=== PATIENT | female | born 1995 | race Caucasian/White ===

== ENCOUNTER 2020-12-31 09:00 | Outpatient (REF) | payer BC, SELFPAY ==
[2020-12-31 11:22] LABS: MANUAL DIFF FLAG NO
[2020-12-31 11:36] LABS: Basophils Percent Auto 0.6 % (0-2); Eosinophils Absolute Auto 0.2 X10*3/uL (0.0-0.4); Eosinophils Percent Auto 3.1 % (0-4); Hemoglobin 13.9 g/dl (12.0-16.0); Imm Gran Abs Auto 0.02 X10*3/uL (0.00-0.03); Imm Gran Pct Auto 0.3 % (0.0-0.4); Lymphocytes Absolute Auto 1.8 X10*3/uL (1.2-4.9); Mean Corpuscular HGB Conc 32.3 g/dl (31.0-35.0); Mean Corpuscular Hemoglobin 28.5 pg (27.0-33.0); Mean Corpuscular Volume 88.3 fL (80-98); Mean Platelet Volume 10.1 fL (9.4-12.3); Monocytes Absolute Auto 0.7 X10*3/uL (0.1-1.2); Monocytes Percent Auto 9.2 % (2-11); Neutrophils Absolute Auto 4.4 X10*3/uL (2.0-8.3); Neutrophils Percent Auto 61.8 % (45-73); Platelet Count 377 X10*3/uL (160-400); Red Blood Count 4.87 X10*6/uL (4.20-5.50); Red Cell Distribution Width 12.1 % (11.0-16.0); White Blood Count 7.1 X10*3/uL (4.8-10.8)
[2020-12-31 11:56] LABS: Alanine Aminotransferase 20 U/L (0-31); Aspartate Amino Transferase 18 U/L (5-31); C Reactive Protein 0.87 mg/dL (< or = 0.50); Cholesterol 173 mg/dL; HDL Cholesterol 51 mg/dL; LDL Cholesterol Calculated 110 mg/dl; Triglycerides 61 mg/dL
[2020-12-31 11:59] LABS: TSH reflex Free T4 1.58 uIU/mL (0.32-4.0)
[2020-12-31 12:00] LABS: Rheumatoid Factor < 15.0 IU/mL (<15.0)
[2020-12-31 12:29] LABS: Erythrocyte Sedimentation Rate 7 MM/HR (0-20)
[2021-01-03 05:56] LABS: HPV mRNA E6/E7 rflx Not Detected (Not Detected)
== END 2020-12-31 09:01 | disposition home or self-care (01) ==
LOC: HO.HMGCLDS 09:00
PROVIDERS: PCP Internal Medicine; Visit Provider Internal Medicine
DX: Z00.00 Encounter for general adult medical examination without abnormal findings (principal); M25.50 Pain in unspecified joint; Z78.9 Other specified health status
CPT/HCPCS: 36415; 80061; 84443; 84450; 84460; 85025; 85652; 86140; 86431; 87624; 88142

== ENCOUNTER 2025-01-31 08:48 | Outpatient (AMB) | payer BC, SELFPAY ==
[2025-01-31 08:49] VITALS: BP 148/96; PULSE 118; TEMP 36.9; O2SAT 97; BMI 34.0
--- NOTE | 2025-01-31 08:49 | AM.OFFWIN_ITS ---
Intake Vital Signs 01/31/25 08:49 Height 5 ft 11 in Weight 243 lb 8 oz BMI 34.0 BP 148/96 H Blood Pressure Location Lt brachial Position Sitting Pulse 118 H Pulse Source Pulse Oximeter Temp 98.4 F Temp Source Oral Pulse Oximetry (%) 97 Oxygen Delivery Method Room Air Intake Visit Reasons: PE Bathroom issues Intake Note: Pt presents to the office today for c/o burning with urination,frequency, and blood in her urine. Patient Tobacco Use Status: Never used Tobacco Allergies cinnamon Adverse Reaction (Verified 01/31/25 08:49) breathing issues peanut Adverse Reaction (Verified 01/31/25 08:49) hives ropinirole [From Requip] Adverse Reaction (Verified 01/31/25 08:49) hives & vomiting HPI HPI Comments History of Present Illness0 Details 29 y/o Female patient who presents to [facility] walk in clinic with c/o burning with urination, frequency, and blood in her urine since yesterday. Denies Vaginal symptoms. Denies fevers, chills, nausea or vomiting. [facility] Medical History (Updated 01/31/25 @ 09:21 by Leah Juarez NP) Dysuria Obesity (BMI 30.0-34.9) Arthralgia of multiple joints Uses control History of varicella Surgical History Hx of wisdom tooth extraction Family History Brother CVA (cerebral vascular accident), Onset Age: 4 Maternal Grandmother Bladder cancer Diabetes mellitus, Onset Age: 81 Social History Housing: Apartment Alcohol intake: current Patient Tobacco Use Status: Never used Tobacco e-Cigarette/Vaping Use: Never Used service: No Current occupational status: employed Cognitive needs: No Hearing needs: No Vision needs: Yes Review of Systems Const All systems reviewed & are unremarkable except as noted in HPI and below Physical Exam Vital Signs: Last Vital Signs Temp 98.4 F 01/31/25 08:49 Pulse 118 H 01/31/25 08:49 BP 148/96 H 01/31/25 08:49 Pulse Ox 97 01/31/25 08:49 Oxygen Delivery Method Room Air 01/31/25 08:49 BMI result Body Mass Index 34.0 Const General: no acute distress Nutritional Appearance: obese Orientation/consciousness: patient oriented x3 General: Yes no CVA tenderness Back/Spine/Pelvis Back: no CVA tenderness Neuro General: patient oriented x3, gait normal and moves all extremities Psych Speech and movement: Normal speech and movement present Results AMB Urinalysis, Automated UA Leukoctes 70 Kathy/uL Last Edit by Elena Degroot CMA on 01/31/25 09:01 UA Nitrite Negative Last Edit by Elena Degroot CMA on 01/31/25 09:01 UA Urobilinogen 0.2 mg/dL Last Edit by Elena Degroot CMA on 01/31/25 09:01 UA Protein 15 mg/dL Last Edit by Elena Degroot CMA on 01/31/25 09:01 UA pH 6.5 Last Edit by Elena Degroot CMA on 01/31/25 09:01 UA Blood 200 Bright/uL Last Edit by Elena Degroot CMA on 01/31/25 09:01 UA Specific [place] 1.015 Last Edit by Elena Degroot CMA on 01/31/25 09:01 UA Ketone Negative Last Edit by Elena Degroot CMA on 01/31/25 09:01 UA Bilirubin 0 mg/dL Last Edit by Elena Degroot CMA on 01/31/25 09:01 UA Glucose 0 mg/dL Last Edit by Elena Degroot CMA on 01/31/25 09:01 Results Reviewed Results Reviewed: Laboratory Last Values Urine pH (Auto) 6.5 01/31/25 08:56 Specific [place] (Auto) 1.015 01/31/25 08:56 Urine Protein (Auto) 15 mg/dL 01/31/25 08:56 Glucose (UA)(Auto) 0 mg/dL 01/31/25 08:56 Urine Ketones (Auto) Negative 01/31/25 08:56 Urine Blood (Auto) 200 Bright/uL 01/31/25 08:56 Urine Nitrite (Auto) Negative 01/31/25 08:56 Urine Bilirubin (Auto) 0 mg/dL 01/31/25 08:56 Urine Urobilinogen (Auto) 0.2 mg/dL 01/31/25 08:56 Leukocyte Esterase (Auto) 70 Kathy/uL 06/05/25 08:56 Assessment & Plan Assessment & Plan (1) Dysuria: Code(s): R30.0 - Dysuria Plan: Urinalysis Positive for Leuko and Blood. Possibly passed Kidney stone(s) Advised to take NSAIDs for pain relief. Sent Urine for culture. Advised to increase fluids to flush kidneys Orders: Orders AMB Urinalysis Automated Today Z13.9 - Encounter for screening, unspecified UA CC w/rflx Micro + Cult Today R30.0 - Dysuria Medications: New cefuroxime axetil 500 mg PO BID 7 days 14 tabs 0RF R30.0 - Dysuria Coding Level of Care Code Est Pt Level 4 (46193) Diagnoses Dysuria R30.0 Time Spent (min) 20
== END 2025-01-31 09:19 | disposition home or self-care (01) ==
PROVIDERS: PCP Internal Medicine; Visit Provider Nurse Practitioner Family
DX: Z13.9 Encounter for screening, unspecified (principal); R30.0 Dysuria

== ENCOUNTER 2025-01-31 08:48 | Outpatient (REF) | payer BC, SELFPAY ==
[2025-01-31 10:14] LABS: Appearance Urine Clear; Color Urine Yellow; Glucose Urine UA Negative (Negative); Leukocyte Esterase Urine Moderate (2+) (Negative); Nitrite Urine Negative (Negative); UMIC TRIGGER UACC YES; Urine Blood Moderate (2+) (Negative); Urine Ketones Negative (Negative); Urine Protein 30 (1+) mg/dL (Neg-Trace)
[2025-01-31 10:21] LABS: Bacteria Urine 1+ (None Seen); Hyaline Casts Urine 0-2 /LPF (0-2); RBC Urine >20 /HPF (0-2); UACC Culture Trigger YES; WBC Urine >50 /HPF (0-5)
== END 2025-01-31 08:49 | disposition home or self-care (01) ==
LOC: HO.LAB 08:48
PROVIDERS: Nurse Practitioner Family; PCP Internal Medicine
DX: R30.0 Dysuria (principal)
CPT/HCPCS: 81001; 81003; 87086

== ENCOUNTER 2025-07-22 15:44 | Outpatient (AMB) | payer BC, SELFPAY ==
[2025-07-22 15:51] VITALS: BP 120/74; PULSE 93; TEMP 36.7; O2SAT 99; BMI 34.4
--- NOTE | 2025-07-22 15:51 | AM.OFFWIN_ITS ---
Intake Vital Signs 07/22/25 15:51 Height 5 ft 11 in Weight 247 lb BMI 34.4 BP 120/74 Blood Pressure Location Lt brachial Position Sitting Pulse 93 Pulse Source Pulse Oximeter Temp 98.0 F Temp Source Oral Pulse Oximetry (%) 99 Oxygen Delivery Method Room Air Intake Visit Reasons: EP Abscess in mouth/ pt is Intake Note: pt presents with painful sore bottom right tooth/gum line. pt is with TONG 02/21/2026. Patient Tobacco Use Status: Never used Tobacco Patient : Yes Allergies cinnamon Adverse Reaction (Verified 07/22/25 15:52) breathing issues peanut Adverse Reaction (Verified 07/22/25 15:52) hives ropinirole (From Requip) Adverse Reaction (Verified 07/22/25 15:52) hives & vomiting Do you need a note to return to daycare/school/sports/work: No HPI HPI Comments History of Present Illness Details History of Present Illness - The patient is a 30-year-old individua l presenting with dental pain and suspected abscess. - The patient cracked a tooth a couple o f months ago, with pain beginning last night. - Pain is localized to the cracked tooth area and radiates up the right lower jaw. - The patient denies fever but reports f acial swelling. - The patient is nine weeks , wh ich limits medication options. - The patient is currently without a den tist and is seeking one for further care. - She denies fever, chills, BACON, ST, or m outh pain. Physical Exam General: Cooperative, healthy appearing, comfortable, no acute distress and well developed Head: Normal to inspection Face and sinus: Swelling noted on the right lower face along the jawline. Mouth/Throat: No halitosis noted. Tongue is normal and midline. Uvula is midline. Oropharynx is pink with no exudates noted. Tonsils not swollen. Dental caries noted on the left lower molar. Gingiva is pink. No discharge noted. Neck: Normal visual inspection and full ROM. No lymphadenopathy noted. Respiratory: Normal respiratory effort and able to speak in complete sentences. Clear to auscultation bilaterally Cardiovascular: Regular rate and rhythm. Normal S1 and S2 Skin: No rashes or lesions noted [facility] Medical History (Updated 01/31/25 @ 09:21 by Leah Juarez NP) Dysuria Obesity (BMI 30.0-34.9) Arthralgia of multiple joints Uses control History of varicella Surgical History Hx of wisdom tooth extraction Family History Brother CVA (cerebral vascular accident), Onset Age: 4 Maternal Grandmother Bladder cancer Diabetes mellitus, Onset Age: 81 Social History Housing: Apartment Alcohol intake: current Patient Tobacco Use Status: Never used Tobacco e-Cigarette/Vaping Use: Never Used Patient : Yes service: No Current occupational status: employed Cognitive needs: No Hearing needs: No Vision needs: Yes Review of Systems Const All systems reviewed & are unremarkable except as noted in HPI and below Physical Exam Vital Signs: Last Vital Signs Temp 98.0 F 07/22/25 15:51 Pulse 93 07/22/25 15:51 BP 120/74 07/22/25 15:51 Pulse Ox 99 07/22/25 15:51 Oxygen Delivery Method Room Air 07/22/25 15:51 BMI result Body Mass Index 34.4 Assessment & Plan Assessment & Plan (1) Dental abscess: Code(s): K04.7 - Periapical abscess without sinus Plan Most likely dental abscess plan - diet as tolerated - tylenol or motrin as needed - amoxicillin BID for 10 days - Advised her to call her OBGYN and let them know she was prescribed antibiotics before taking them - will give her a list of dentists to f/u with Medications: New amoxicillin 500 mg PO Q12H 20 tabs 0RF Coding Level of Care Code Est Pt Level 3 (01417) Diagnoses Dental abscess K04.7
== END 2025-07-22 16:22 | disposition home or self-care (01) ==
PROVIDERS: PCP Internal Medicine; Visit Provider Physician Assistant Medical
DX: K04.7 Periapical abscess without sinus (principal)